=== PATIENT | male | born 1955 | race Caucasian/White ===

== ENCOUNTER 2020-02-07 21:18 | Emergency (ER) | payer BC, MEDICAID ==
[~2020-02-07] VITALS: Ht 157.5 cm; Wt 72.0 kg
[~2020-02-07 21:18] MED LIST: CARB200T6 PO; DILT30TA38 PO; GLIP5TAB12 MT; PROT40 MT
[2020-02-07] MEDS ORDERED: ASPIRIN 81MG TABLET PO ONE (21:45)
[2020-02-07 23:09] LABS: BASOPHILS % 0.4 % (0.0-2.0); EOSINOPHILS % 1.1 % (0.0-5.0); HEMATOCRIT. 31.1 % (42.0-52.0); LYMPHOCYTES % 35.3 % (20.0-50.0); MEAN CORPUSCULAR HEMOGLOBIN 34.1 pg (28.0-32.0); MEAN CORPUSCULAR VOLUME 95.9 fL (80.0-94.0); MONOCYTES % 13.2 % (2.0-8.0); PLATELET 185 x1000/uL (130-400); RED BLOOD CELL COUNT 3.24 mill/uL (4.7-6.1); RED CELL DISTRIBUTION WIDTH 14.3 % (11.6-14.6)
[2020-02-07 23:15] LABS: CHLORIDE 106 mEq/L (98-107)
[2020-02-08] MEDS ORDERED: PHENOBARBITAL SODIUM 130MG/ML 1ML IV SCH (01:30)
[2020-02-08 01:35] VITALS: BP 103/58
== END 2020-02-08 01:46 | disposition home or self-care (01) ==
LOC: ER 21:18
DX: R00.0 Tachycardia, unspecified (principal); I10 Essential (primary) hypertension; M79.622 Pain in left upper arm; E11.9 Type 2 diabetes mellitus without complications; Z98.890 Other specified postprocedural states; Z79.899 Other long term (current) drug therapy
CPT/HCPCS: 36415; 71045; 80053; 83880; 84484; 85025; 85379; 93005; 99285; J2560